=== PATIENT | female | born 2000 | race Two or more races ===

== ENCOUNTER 2018-10-26 21:22 | Emergency (ER) | payer BC ==
[2018-10-26] MEDS ORDERED: HALOPERIDOL LACT 5 MG/ML INJ IV ONE (21:32)
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
[2018-10-26] MEDS ORDERED: HALOPERIDOL LACT 5 MG/ML INJ IVP ONE (21:38)
[2018-10-26 22:03] LABS: PLATELET COUNT 308 10^3/uL (150-400)
[2018-10-27 06:40] VITALS: BP 117/73
== END 2018-10-27 07:05 | disposition home or self-care (01) ==
LOC: EDBD 21:22
DX: F10.920 Alcohol use, unspecified with intoxication, uncomplicated (principal); F12.90 Cannabis use, unspecified, uncomplicated; Y90.8 Blood alcohol level of 240 mg/100 ml or more
CPT/HCPCS: 80305; 96374; G0480; J1200; J1630